=== PATIENT | female | born 1970 | race Caucasian/White ===

== ENCOUNTER → 2020-09-15 | Outpatient (CLI) | payer BC ==
[~2020-09-15] MED LIST: MAGNESIUM400 MG PO; MOBIC7.5 MG PO; MULTI-DAY VITA1 EACH PO; NORCO 5-325 TA1 EACH PO; SYNTHROID137 MCG PO; ZANTAC150 MG PO
== END ==
LOC: KOH-I 10:40
DX: M25.562 Pain in left knee (principal); M25.462 Effusion, left knee; R93.7 Abnormal findings on diagnostic imaging of other parts of musculoskeletal system
CPT/HCPCS: 73721